=== PATIENT | male | born 1990 | race Caucasian/White ===

== ENCOUNTER → 2018-06-26 | Outpatient (CLI) | payer BC | LOC: M WUC 12:04 | DX: S39.012A Strain of muscle, fascia and tendon of lower back, initial encounter (principal); Y92.89 Other specified places as the place of occurrence of the external cause; Y93.89 Activity, other specified; X58.XXXA Exposure to other specified factors, initial encounter; Y99.8 Other external cause status | CPT/HCPCS: 72110 ==

== ENCOUNTER → 2018-07-03 | Outpatient (CLI) | payer BC | LOC: M WUC 11:42 | DX: R05 Cough (principal) | CPT/HCPCS: 71046 ==